=== PATIENT | female | born 1985 | race Caucasian/White ===

== ENCOUNTER 2023-04-20 19:24 | Inpatient (IN) | payer OTHER, SELFPAY ==
[2023-04-20 19:51] VITALS: BP 134/84; PULSE 90; RESP 18; TEMP 36.2; O2SAT 97
[2023-04-20 20:33] VITALS: BMI 29.3
--- NOTE | 2023-04-20 22:49 | PC.ADMIT ---
Candelaria was admitted on a CV following a transfer from [facility] after an intentional overdose on Ativan. I had a fight with my boyfriend and I was really upset. I took about 3 or 3.5mg of Ativan witch is more then I should have. patient denies this to be a suicide attempt. she states that she has been having a hard time coping since [facility] . I was living in [place] but decided to comer back here and have been struggling with my anxiety ever since. I think my meds are working I used to have panic attacks and wake up a lot at night. now I wake up like once a night she denies suicidal/homicidal ideation, auditory/visual hallucinations she endorses depression and anxiety. she is alert and oriented on all spheres pleasant and cooperative with the admission. all admission documentation completed, treatment plan initiated
[2023-04-21 07:19] LABS: Estimated Average Glucose 91 mg/dL; Hemoglobin A1c % 4.8 %
[2023-04-21 07:25] LABS: Cholesterol 269 mg/dL; HDL Cholesterol 62 mg/dL; LDL Cholesterol Calculated 157 mg/dl; Triglycerides 252 mg/dL
[2023-04-21 07:41] LABS: Free T4 (Free Thyroxine) 0.85 ng/dL (0.71-1.85); Thyroid Stimulating Hormone 2.47 uIU/mL (0.32-4.0)
[2023-04-21 07:54] LABS: Folate 7.4 ng/mL (> or = 4.0); Vitamin B12 479 pg/mL (200-900)
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
[2023-04-21 08:35] VITALS: BP 129/84; PULSE 76; RESP 18; TEMP 36.5; O2SAT 97
[2023-04-21] MEDS: Escitalopram Oxalate 10 MG TABLET PO (09:09)
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
[2023-04-22 08:30] VITALS: BP 122/69; PULSE 78; RESP 16; TEMP 36.6; O2SAT 97
[2023-04-22] MEDS: Escitalopram Oxalate 10 MG TABLET PO (08:36)
--- NOTE | 2023-04-22 11:10 | HO.PSYCHPN ---
Subjective Subjective Date of Service: 04/22/23 Reason For Visit: depression Subjective Notes: Conditional Voluntary Healthcare Proxy: No Guardianship: No Medical Problems Affecting Mental Status: No Interim History: Patient was seen and discussed in rounds today. Records and plans were reviewed. She has been stable and is doing well with no anxiety episodes. She talked at length about the Lexapro which has been very helpful with her anxiety and anxiety attacks however minimally helpful with depression. I explained a few things about SSRIs and we decided on increasing the Lexapro to 15 mg as of today. No complaints. No changes other than Lexapro were made. Eating and sleeping well. No SI Medication Compliance: Yes Side effects from medications: No Attending Groups: Yes Review of Systems Review of Systems Yes all other systems are reviewed and are negative Mental Status Exam Mental Status Exam Narrative: She is alert, oriented and pleasant. Normal speech. Good eye contact. Affect is appropriate and varied. Cognitively is intact. No SI. No overt signs depression. Judgment is intact. Diagnostics Vital Signs (24Hr): Vital Signs - 24 hr 04/22/23 08:30 Temperature 97.9 F Pulse Rate 78 Respiratory Rate 16 Blood Pressure 122/69 Pulse Oximetry 97 Oxygen Delivery Method Room Air BMI result Body Mass Index 29.3 Labs Labs: Laboratory Results - last 48 hr 04/21/23 04/21/23 04/21/23 06:40 06:40 06:40 Estimat Average Glucose 91 Hemoglobin A1c % 4.8 Triglycerides 252 Cholesterol 269 LDL Cholesterol, Calc 157 HDL Cholesterol 62 Vitamin B12 479 Folate 7.4 TSH 2.47 Free T4 0.85 Medications Medications Current Medications Acetaminophen (Acetaminophen 325 Mg Tablet) 650 mg PO Q6H PRN PRN Reason: Headache/Pain Mild Scale (1-3) Al Hydroxide/Mg Hydroxide (Magnesium Hydrox/Alum Hydrox 30 Ml Oral.Susp) 30 ml PO Q6H PRN PRN Reason: Heartburn/Nausea Escitalopram Oxalate (Escitalopram Oxalate 10 Mg Tablet) 10 mg PO DAILY SANNA Last Admin: 04/22/23 08:36 Dose: 10 mg Hydroxyzine HCl (Hydroxyzine Hcl 25 Mg Tablet) 25 mg PO Q6H PRN PRN Reason: Anxiety Magnesium Hydroxide (Milk Of Magnesia 30 Ml Oral.Susp) 30 ml PO DAILY PRN PRN Reason: Constipation Trazodone HCl (Trazodone Hcl 50 Mg Tablet) 50 mg PO BEDTIME MRX1 PRN PRN Reason: Insomnia Allergies Allergies Allergy/AdvReac Type Severity Reaction Status Date / Time No Known Allergies Allergy Verified 04/20/23 20:50 Assessment & Plan Assessment & Plan (1) Routine medical exam: Status: Acute Code(s): Z00.00 - Encounter for general adult medical examination without abnormal findings Plan 38-year-old female without any significant medical history admitted to Psychiatry with consult placed hospitalist Medicine for medical H&P. #Mood disorder with ativan OD -plan per psychiatry Thank you for allowing me to participate in this consult. Signing off at this time. Please do not hesitate to call for further questions. 04/22: Continue current regimen and plans. Increase Lexapro to 15 mg Reason for continued inpatient stay Substantial Risk for: med/psych decompensation Time Spent With Patient Time: Total time managing care of this patient today ____ minutes.
[2023-04-22] MEDS: Escitalopram Oxalate 5 MG TABLET PO (11:17)
[2023-04-22 20:20] VITALS: BP 127/77; PULSE 66; RESP 18; TEMP 36.4; O2SAT 97
[2023-04-22] MEDS: traZODone HCL 50 MG TABLET PO (23:56)
[2023-04-23 08:33] VITALS: BP 114/69; PULSE 76; RESP 16; TEMP 36.5; O2SAT 98
[2023-04-23] MEDS: Escitalopram Oxalate 5 MG TABLET 15 MG PO (08:38)
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
== END 2023-04-23 13:05 | disposition home or self-care (01) | DRG 751 ==
PROVIDERS: Clinical Nurse Specialist Psychiatric/Mental Health, Adult; Admitting Provider Psychiatry & Neurology Psychiatry; Visit Provider Psychiatry & Neurology Psychiatry
DX: F33.1 Major depressive disorder, recurrent, moderate (principal); Z62.810 Personal history of physical and sexual abuse in childhood; Z79.899 Other long term (current) drug therapy
CPT/HCPCS: 36415; 80061; 82607; 82746; 83036; 84439; 84443

== ENCOUNTER → 2023-04-20 19:24 | Outpatient (BNV) | payer OTHER, SELFPAY | PROVIDERS: Admitting Provider Psychiatry & Neurology Psychiatry; Visit Provider Psychiatry & Neurology Psychiatry | DX: F33.2 Major depressive disorder, recurrent severe without psychotic features (principal) | CPT/HCPCS: 90792; 99239 ==

== ENCOUNTER → 2023-04-20 19:24 | Outpatient (BNV) | payer OTHER, SELFPAY | PROVIDERS: Admitting Provider Psychiatry & Neurology Psychiatry; Visit Provider Physician Assistant | DX: F33.2 Major depressive disorder, recurrent severe without psychotic features (principal) | CPT/HCPCS: 99222 ==